=== PATIENT | male | born 1960 | race Caucasian/White ===

== ENCOUNTER 2023-03-03 08:55 | Emergency (ER) | payer OTHER ==
[~2023-03-03] VITALS: Ht 175.3 cm; Wt 131.8 kg
[2023-03-03 09:11] VITALS: BP 185/116
[2023-03-03 09:38] LABS: BASOPHILS % (AUTO) 0.2 % (0-1); EOSINOPHILS % (AUTO) 0.2 % (0-6); HEMATOCRIT 43.5 % (42.0-52.0); HEMOGLOBIN 14.7 g/dl (14.0-17.9); LYMPHOCYTES # (AUTO) 0.4 X10'3 (1.1-4.8); MEAN CORPUSCULAR HEMOGLOBIN 30.5 PG (27.0-31.0); MEAN CORPUSCULAR HGB CONC 33.9 g/dL (33.0-36.5); MEAN CORPUSCULAR VOLUME 90.1 FL (78-98); MEAN PLATELET VOLUME 7.6 FL (7.4-10.4); MONOCYTES # (AUTO) 0.4 X10'3 (0-0.9); MONOCYTES % (AUTO) 4.4 % (2-12); NEUTROPHILS # (AUTO) 8.9 X10'3 (1.8-7.7); NEUTROPHILS % (AUTO) 91.2 % (42-75); PLATELET COUNT 167 X10'3 (140-440); RED BLOOD COUNT 4.83 X10'6 (4.70-6.10); RED CELL DISTRIBUTION WIDTH 14.2 % (11.5-14.5); WHITE BLOOD COUNT 9.8 X10'3 (4.5-11.0)
[2023-03-03 09:51] LABS: ALANINE AMINOTRANSFERASE 52 U/L (12-78); ALBUMIN 3.9 G/DL (3.4-5.0); ALBUMIN/GLOBULIN RATIO 1.1 (1.1-1.5); ALKALINE PHOSPHATASE 176 IU/L (46-116); ANION GAP 12 (8-16); ASPARTATE AMINO TRANSFERASE 33 U/L (10-37); BILIRUBIN,TOTAL 0.7 MG/DL (0.1-1.0); BLOOD UREA NITROGEN 19 MG/DL (7-18); CALCIUM 8.9 MG/DL (8.5-10.1); CHLORIDE 101 MMOL/L (99-107); CREATININE 1.19 MG/DL (0.60-1.10); GLUCOSE 195 MG/DL (70-104); POTASSIUM 4.6 MMOL/L (3.5-5.1); SODIUM 137 MMOL/L (135-145); TOTAL CARBON DIOXIDE 24.3 MMOL/L (24-32); TOTAL PROTEIN 7.6 G/DL (6.4-8.2); eGFR 62 ML/MIN
[2023-03-03 10:01] LABS: MAGNESIUM 2.1 MG/DL (1.5-2.4)
[2023-03-03] MEDS ORDERED: LIDOcaine Viscous 15ml cup MM ONE (14:30)
[2023-03-03] MEDS ORDERED: mag hydrox/Alum hydrox/simeth 30ml oral suspension PO ONE (14:30)
[2023-03-03] MEDS ORDERED: pantoprazole 40mg Tablet.DR PO ONE (14:30)
[2023-03-03] MEDS ORDERED: sucralfate 1 gm tablet PO ONE (14:30)
[2023-03-03] MEDS ORDERED: ondansetron 4mg rapidly disintigrating tab PO ONE (17:05)
[2023-03-03] MEDS ORDERED: HYDROcodone/acetaminophen 10/325mg tab PO ONE (17:05)
[2023-03-03] MEDS ORDERED: HYDR-3973 PO ×2 (17:48)
[2023-03-03] MEDS ORDERED: AMOX-117 PO ×2 (17:48)
[2023-03-03] MEDS ORDERED: ONDA4TAB12 PO ×2 (17:48)
== END 2023-03-03 18:09 | disposition home or self-care (01) ==
LOC: ER 08:56
DX: K80.50 Calculus of bile duct without cholangitis or cholecystitis without obstruction (principal); E78.00 Pure hypercholesterolemia, unspecified; I10 Essential (primary) hypertension; I25.2 Old myocardial infarction; F17.200 Nicotine dependence, unspecified, uncomplicated; Z95.5 Presence of coronary angioplasty implant and graft; Z87.19 Personal history of other diseases of the digestive system; Z79.02 Long term (current) use of antithrombotics/antiplatelets
CPT/HCPCS: 36415; 71045; 74176; 76700; 80053; 83735; 83880; 84484; 85025; 99284; 99285

== ENCOUNTER 2023-03-04 16:54 | Inpatient (IN) | payer OTHER ==
[~2023-03-04] VITALS: Ht 175.3 cm; Wt 131.2 kg
[~2023-03-04 16:54] MED LIST: AMOX-117 PO; HYDR-3973 PO; ONDA4TAB12 PO
[2023-03-04 17:41] LABS: BASOPHILS % (AUTO) 0.1 % (0-1); EOSINOPHILS % (AUTO) 0.3 % (0-6); HEMATOCRIT 46.1 % (42.0-52.0); HEMOGLOBIN 15.5 g/dl (14.0-17.9); LYMPHOCYTES # (AUTO) 0.3 X10'3 (1.1-4.8); LYMPHOCYTES % (AUTO) 3.3 % (21-51); MEAN CORPUSCULAR HEMOGLOBIN 30.1 PG (27.0-31.0); MEAN CORPUSCULAR HGB CONC 33.7 g/dL (33.0-36.5); MEAN CORPUSCULAR VOLUME 89.4 FL (78-98); MONOCYTES # (AUTO) 0.1 X10'3 (0-0.9); MONOCYTES % (AUTO) 0.8 % (2-12); NEUTROPHILS # (AUTO) 7.5 X10'3 (1.8-7.7); NEUTROPHILS % (AUTO) 95.5 % (42-75); PLATELET COUNT 163 X10'3 (140-440); RED BLOOD COUNT 5.15 X10'6 (4.70-6.10); RED CELL DISTRIBUTION WIDTH 14.3 % (11.5-14.5); WHITE BLOOD COUNT 7.9 X10'3 (4.5-11.0)
[2023-03-04 17:56] LABS: ALANINE AMINOTRANSFERASE 60 U/L (12-78); ALBUMIN 3.6 G/DL (3.4-5.0); ALBUMIN/GLOBULIN RATIO 0.8 (1.1-1.5); ALKALINE PHOSPHATASE 202 IU/L (46-116); ANION GAP 14 (8-16); ASPARTATE AMINO TRANSFERASE 41 U/L (10-37); BILIRUBIN,TOTAL 3.3 MG/DL (0.1-1.0); BLOOD UREA NITROGEN 21 MG/DL (7-18); BUN/CREATININE RATIO 10.4 (10.0-20.0); CALCIUM 9.4 MG/DL (8.5-10.1); CHLORIDE 98 MMOL/L (99-107); CREATININE 2.01 MG/DL (0.60-1.10); GLUCOSE 153 MG/DL (70-104); LIPASE 56 U/L (73-393); POTASSIUM 4.1 MMOL/L (3.5-5.1); SODIUM 134 MMOL/L (135-145); TOTAL CARBON DIOXIDE 22.3 MMOL/L (24-32); TOTAL PROTEIN 7.9 G/DL (6.4-8.2); eGFR 34 ML/MIN
[2023-03-04] MEDS ORDERED: piperacillin/tazo 3.375gm/50ml 50 ML IV ONE (19:35)
[2023-03-04] MEDS ORDERED: normal saline 1000ml 1,000 ML IV ONE (19:35)
[2023-03-05] MEDS ORDERED: magnesium 2GM in 50ml NS 50 ML IV PRN (01:50)
[2023-03-05] MEDS ORDERED: magnesium 4gm in 100ml NS 100 ML IV PRN (01:50)
[2023-03-05] MEDS ORDERED: ondansetron/PF 4mg/2ml inj IV PRN (01:50)
[2023-03-05] MEDS ORDERED: morphine 2 MG/ML inj. syringe IV PRN (01:50)
[2023-03-05] MEDS ORDERED: magnesium hydroxide 30ml (MOM) UD suspension PO PRN (01:50)
[2023-03-05] MEDS ORDERED: potassium Cl 40MEQ/1/2NS 520ml 520 ML IV PRN (01:50)
[2023-03-05] MEDS ORDERED: mag hydrox/Alum hydrox/simeth 30ml oral suspension PO PRN (01:50)
[2023-03-05] MEDS: normal saline 1000ml 1,000 ML IV SCH ×3 (02:01→22:04)
--- NOTE | 2023-03-05 02:04 | NUR ---
Patient home CPAP set up in room.
[2023-03-05] MEDS ORDERED: FAMO40TA8 PO (02:17)
[2023-03-05] MEDS ORDERED: THIA100T70 PO (02:17)
[2023-03-05] MEDS ORDERED: NITR0.4T51 SL (02:17)
[2023-03-05] MEDS ORDERED: PROP40TA7 PO (02:17)
[2023-03-05] MEDS ORDERED: PANT40TA54 PO (02:17)
[2023-03-05] MEDS ORDERED: ATOR-2 PO (02:17)
[2023-03-05] MEDS ORDERED: CLOP75TA34 PO (02:17)
[2023-03-05] MEDS ORDERED: CLON0.1T2 PO (02:17)
[2023-03-05] MEDS ORDERED: LISI10TA27 PO (02:17)
[2023-03-05] MEDS ORDERED: SERT-433 PO (02:17)
--- NOTE | 2023-03-05 03:08 | NUR ---
ASSUMED CARE OF PT AFTER RECEIVING REPORT. PT TRANSFERRED TO 6 VIA [facility]. AWAKE NO DISTRESS NOTED. HOME CPAP IN PLACE.
[2023-03-05] MEDS ORDERED: cloNIDine 0.1 mg tablet PO PRN (03:10)
[2023-03-05] MEDS ORDERED: nitroGLYCERIN 0.4mg SUBLingual tab SL PRN (03:10)
--- NOTE | 2023-03-05 05:03 | NUR ---
PT. SLEEPING QUIETLY WITH CPAP IN PLACE WITHOUT DISTRESS OBSERVED.
[2023-03-05] MEDS: lisinopril 10 MG tablet PO SCH (08:00)
[2023-03-05] MEDS: thiamine 100mg tablet PO SCH (08:00)
[2023-03-05] MEDS: famotidine 20mg tablet PO SCH (08:00)
[2023-03-05] MEDS: K and/or MAG REPLACEMENT MC SCH ×2 (08:00→20:00)
[2023-03-05] MEDS: sertraline 50mg tablet PO SCH (08:00)
[2023-03-05] MEDS: pantoprazole 40mg Tablet.DR PO SCH ×2 (08:00→20:08)
[2023-03-05] MEDS: propranolol 10mg tablet PO SCH ×2 (08:00→20:08)
[2023-03-05] MEDS: docusate sod 100mg capsule PO SCH ×2 (08:00→20:08)
[2023-03-05 08:41] LABS: ALANINE AMINOTRANSFERASE 172 U/L (12-78); ALBUMIN 3.1 G/DL (3.4-5.0); ALBUMIN/GLOBULIN RATIO 0.7 (1.1-1.5); ALKALINE PHOSPHATASE 165 IU/L (46-116); ANION GAP 10 (8-16); ASPARTATE AMINO TRANSFERASE 134 U/L (10-37); BLOOD UREA NITROGEN 29 MG/DL (7-18); BUN/CREATININE RATIO 9.5 (10.0-20.0); CALCIUM 8.8 MG/DL (8.5-10.1); CHLORIDE 97 MMOL/L (99-107); CREATININE 3.05 MG/DL (0.60-1.10); GLUCOSE 165 MG/DL (70-104); MAGNESIUM 1.8 MG/DL (1.5-2.4); POTASSIUM 4.2 MMOL/L (3.5-5.1); SODIUM 133 MMOL/L (135-145); TOTAL CARBON DIOXIDE 26.2 MMOL/L (24-32); TOTAL PROTEIN 7.4 G/DL (6.4-8.2); eGFR 21 ML/MIN
[2023-03-05 10:00] VITALS: BP 115/71
[2023-03-05 12:01] VITALS: BP 115/71
--- NOTE | 2023-03-05 12:02 | NUR ---
Patient in room [facility] 356. I have received report from ER. Patient left on Med surge floor without notifying charge nurse or assigned nurse. No IV or fluids running/ Patient oriented to floor, Vitals taken and IV fluids set up. Waiting on pharmacy to bring up dose of IV zosyn that was scheduled to give at AM. Patient was sent to MRI and returned due to size. notified, new orders pending. Patient denies any pain at this time. Will continue NPO orders. All safety measures in place and call light in reach. Will continue to monitor.
[2023-03-05] MEDS: piperacillin/tazo 3.375gm/50ml 50 ML IV SCH ×3 (13:07→23:56)
[2023-03-05 15:00] VITALS: BP 124/66
--- NOTE | 2023-03-05 16:00 | NUR ---
I have reviewed interventions, assessments and documentation by Wanda Baumann LVN.
--- NOTE | 2023-03-05 16:29 | NUR ---
Am dose of Zosyn was not available from Pharmacy until noon when it appeared in unit refrigerator. The late am dose was given at 1300 and next dose will be given at MN, per pharmacist's instruction. Pt & also stated he has a pcn allergy, but that he had no reactions to the Zosyn given in ER. Pharmacy was informed and they stated pt was able to take Zosyn due to no reaction. Pt and were instructed to call RN immediately if he has any s/sx of allergic rx such as itching, rash, sob, etc. Pt agreed. No s/s of allergic reactions appeared during infusion of Zosyn today.
--- NOTE | 2023-03-05 17:22 | NUR ---
Patient waiting on new orders from . MRI was unable to be performed. Hospitalist notified. No new orders to follow. Currently in bed with CPAP from home on. Vitals remain stable. Temp currently 98.9. Discomfort to ABD. Last BM per patient was 9-6. Normally goes once a day. Bowel sounds active. Will continue NPO orders until orders change. All safety measures in place and call light in reach. Will continue to monitor.
--- NOTE | 2023-03-05 18:20 | NUR ---
Patient in room [facility] 356. I have received report from KUSHAL Muñoz and had the opportunity to ask questions and assume patient care. Patient laying on bed in no obvious distress, at bedside. I will continue to monitor.
[2023-03-05 20:00] VITALS: BP 122/75
[2023-03-05] MEDS ORDERED: atorvastatin 20mg tablet PO SCH (21:00)
[2023-03-06] VITALS (22 sets, daily range): BP systolic 109–149; BP diastolic 64–101
[2023-03-06] MEDS: normal saline 1000ml 1,000 ML IV SCH ×4 (03:03→18:24)
[2023-03-06 04:51] LABS: BASOPHILS % (AUTO) 0.2 % (0-1); EOSINOPHILS % (AUTO) 0.1 % (0-6); HEMATOCRIT 38.1 % (42.0-52.0); HEMOGLOBIN 12.9 g/dl (14.0-17.9); LYMPHOCYTES # (AUTO) 0.4 X10'3 (1.1-4.8); LYMPHOCYTES % (AUTO) 3.7 % (21-51); MEAN CORPUSCULAR HEMOGLOBIN 30.5 PG (27.0-31.0); MEAN CORPUSCULAR HGB CONC 33.9 g/dL (33.0-36.5); MEAN CORPUSCULAR VOLUME 89.7 FL (78-98); MEAN PLATELET VOLUME 8.5 FL (7.4-10.4); MONOCYTES # (AUTO) 0.4 X10'3 (0-0.9); MONOCYTES % (AUTO) 4.6 % (2-12); NEUTROPHILS # (AUTO) 8.9 X10'3 (1.8-7.7); NEUTROPHILS % (AUTO) 91.4 % (42-75); PLATELET COUNT 99 X10'3 (140-440); RED BLOOD COUNT 4.24 X10'6 (4.70-6.10); RED CELL DISTRIBUTION WIDTH 14.6 % (11.5-14.5); WHITE BLOOD COUNT 9.7 X10'3 (4.5-11.0)
[2023-03-06 05:04] LABS: ALANINE AMINOTRANSFERASE 109 U/L (12-78); ALBUMIN 2.5 G/DL (3.4-5.0); ALBUMIN/GLOBULIN RATIO 0.6 (1.1-1.5); ALKALINE PHOSPHATASE 151 IU/L (46-116); ANION GAP 10 (8-16); ASPARTATE AMINO TRANSFERASE 46 U/L (10-37); BILIRUBIN,TOTAL 1.1 MG/DL (0.1-1.0); BLOOD UREA NITROGEN 31 MG/DL (7-18); BUN/CREATININE RATIO 14.6 (10.0-20.0); CALCIUM 8.6 MG/DL (8.5-10.1); CHLORIDE 101 MMOL/L (99-107); CREATININE 2.13 MG/DL (0.60-1.10); GLUCOSE 177 MG/DL (70-104); MAGNESIUM 2.3 MG/DL (1.5-2.4); POTASSIUM 3.7 MMOL/L (3.5-5.1); SODIUM 134 MMOL/L (135-145); TOTAL CARBON DIOXIDE 22.9 MMOL/L (24-32); TOTAL PROTEIN 6.9 G/DL (6.4-8.2); eGFR 32 ML/MIN
--- NOTE | 2023-03-06 06:30 | NUR ---
Patient in room [facility] 356. I have received report from ZEYAD Morrell and had the opportunity to ask questions and assume patient care.
[2023-03-06] MEDS: K and/or MAG REPLACEMENT MC SCH ×2 (07:39→20:19)
[2023-03-06] MEDS: docusate sod 100mg capsule PO SCH ×2 (07:43→20:00)
[2023-03-06] MEDS: lisinopril 10 MG tablet PO SCH (08:01)
[2023-03-06] MEDS: thiamine 100mg tablet PO SCH (08:01)
[2023-03-06] MEDS: sertraline 50mg tablet PO SCH (08:02)
[2023-03-06] MEDS: pantoprazole 40mg Tablet.DR PO SCH ×2 (08:02→20:23)
[2023-03-06] MEDS: propranolol 10mg tablet PO SCH ×2 (08:02→20:22)
[2023-03-06] MEDS: famotidine 20mg tablet PO SCH (08:02)
[2023-03-06] MEDS: piperacillin/tazo 3.375gm/50ml 50 ML IV SCH ×2 (08:16→20:51)
[2023-03-06] MEDS ORDERED: pneumococcal 23-VAL P-sac vacc 25 mcg/0.5ml vial IMVAC ONE (10:00)
--- NOTE | 2023-03-06 14:00 | NUR ---
Patient taken to OR at 1400, report called to ballistics teacher John
[2023-03-06] MEDS ORDERED: BUPIVAcaine/PF 2.5 mg/ml (0.25%) 30ml vial ONE (15:14)
[2023-03-06] MEDS ORDERED: fentaNYL/PF 50MCG/1 ML 2ML syringe ONE ×2 (15:19→15:20)
[2023-03-06] MEDS ORDERED: midazolam 1 mg/ML 2ml injection ONE (15:19)
[2023-03-06] MEDS ORDERED: propofol inj 20 ML IV ONE (15:21)
[2023-03-06] MEDS ORDERED: morphine 2 MG/ML inj. syringe IV PRN (15:25)
[2023-03-06] MEDS ORDERED: meperidine/PF 25mg/ml syringe IV PRN ×3 (15:25)
[2023-03-06] MEDS ORDERED: morphine 4 MG/ML inj SYRINge IV PRN (15:25)
[2023-03-06] MEDS ORDERED: ondansetron/PF 4mg/2ml inj IV PRN (15:25)
[2023-03-06] MEDS ORDERED: labetalol 20mg/4ml (5mg/ml) syringe IV PRN (15:25)
[2023-03-06] MEDS ORDERED: proCHLORperazine 10 MG/2 ml inj IV PRN (15:25)
[2023-03-06] MEDS ORDERED: ringers solution, lacted 1,000 ML IV SCH (15:25)
--- NOTE | 2023-03-06 15:37 | NUR ---
PAGER ID: [phone] MESSAGE: James HainesB. Patient has home CPAP at bedside, ok to use? Thank you, Neeru [phone]
[2023-03-06] MEDS ORDERED: famotidine 20mg tablet PO SCH (16:07)
[2023-03-06] MEDS ORDERED: rocuronium 10mg/ml inj IV ONE ×2 (16:12)
[2023-03-06] MEDS ORDERED: BUPIVAcaine/PF 2.5 mg/ml (0.25%) 30ml vial IJ ONE (16:29)
[2023-03-06] MEDS ORDERED: mupirocin 2% ointment 22GM ONE (16:54)
--- NOTE | 2023-03-06 17:16 | NUR ---
Received from OR via [facility], accompanied by Anesthesiologist DR IYER and report given by Anesthesiologist AND STEVEDORING SUPERVISOR. PT DROWSY, DENIES PAIN. ABDOMEN W/4 LAP SITES W/[facility] COVERING CDI, AUGUST W/S/S DRAINAGE TO BULB SX. Addendum: 03/06/23 at 1742 by Meaghan Luz RN Amended: Links added.
[2023-03-06] MEDS: morphine 2 MG/ML inj. syringe IV PRN (18:40)
--- NOTE | 2023-03-06 18:46 | NUR ---
Report called to receiving nurse. Transferred via BED, NO Belongings. PAIN TOLERABLE, RECEIVING RN AT BEDSIDE TO RECEIVE PT. PTS AT BEDSIDE. BLL, CALL LIGHT GIVEN, SIDE RAILS UP. Special Issues communicated to receiving nurse. YES. Addendum: 03/06/23 at 1859 by Meaghan Luz RN Amended: Links added.
--- NOTE | 2023-03-06 18:54 | NUR ---
Demi the pharmacist aware that patient states he had an allergic reaction in the past to Penicillin ( he thinks) which resulted in Hives. Patient has been getting Zosyn here with no reaction.
--- NOTE | 2023-03-06 19:05 | NUR ---
Notified Dr Parmar of patients allergy to Penicillin, Per patient he cant remember which antibiotic and his reaction was hives. Patient has had not symptoms. Per Dr Parmar continue antibiotic but monitor for any reaction. Neeru cedeño EQUIPMENT RECORDS SUPERVISOR aware.
[2023-03-07 06:00] VITALS: BP 136/77
--- NOTE | 2023-03-07 06:00 | NUR ---
Received report from KUSHAL Claros; reprioritized plan of care. Patient checked on, no acute distress at this time. Bed in lowest position/ locked, call chavis within reach. Bed alarm on.
--- NOTE | 2023-03-07 06:19 | NUR ---
Problems reprioritized. Patient report given, questions answered & plan of care reviewed with KUSHAL Zepeda.
--- NOTE | 2023-03-07 06:30 | NUR ---
SENIOR IT AUDITOR CHARTING REVIEWED AND IN AGREEMENT.
[2023-03-07 07:14] LABS: BASOPHILS % (AUTO) 0.2 % (0-1); EOSINOPHILS % (AUTO) 0 % (0-6); HEMATOCRIT 36.9 % (42.0-52.0); HEMOGLOBIN 12.5 g/dl (14.0-17.9); LYMPHOCYTES # (AUTO) 0.5 X10'3 (1.1-4.8); LYMPHOCYTES % (AUTO) 5.6 % (21-51); MEAN CORPUSCULAR HEMOGLOBIN 30.5 PG (27.0-31.0); MEAN CORPUSCULAR HGB CONC 33.8 g/dL (33.0-36.5); MEAN CORPUSCULAR VOLUME 90.1 FL (78-98); MEAN PLATELET VOLUME 9.2 FL (7.4-10.4); MONOCYTES # (AUTO) 0.4 X10'3 (0-0.9); NEUTROPHILS # (AUTO) 8.5 X10'3 (1.8-7.7); NEUTROPHILS % (AUTO) 90.2 % (42-75); PLATELET COUNT 109 X10'3 (140-440); RED BLOOD COUNT 4.09 X10'6 (4.70-6.10); RED CELL DISTRIBUTION WIDTH 14.8 % (11.5-14.5); WHITE BLOOD COUNT 9.4 X10'3 (4.5-11.0)
[2023-03-07] MEDS: morphine 2 MG/ML inj. syringe IV PRN (07:32)
[2023-03-07] MEDS: piperacillin/tazo 3.375gm/50ml 50 ML IV SCH (07:39)
[2023-03-07] MEDS: K and/or MAG REPLACEMENT MC SCH (08:00)
[2023-03-07 08:06] LABS: ALANINE AMINOTRANSFERASE 99 U/L (12-78); ALBUMIN 2.2 G/DL (3.4-5.0); ALBUMIN/GLOBULIN RATIO 0.5 (1.1-1.5); ALKALINE PHOSPHATASE 182 IU/L (46-116); ANION GAP 13 (8-16); ASPARTATE AMINO TRANSFERASE 45 U/L (10-37); BILIRUBIN,TOTAL 0.7 MG/DL (0.1-1.0); BLOOD UREA NITROGEN 28 MG/DL (7-18); BUN/CREATININE RATIO 16.4 (10.0-20.0); CALCIUM 8.5 MG/DL (8.5-10.1); CHLORIDE 103 MMOL/L (99-107); CREATININE 1.71 MG/DL (0.60-1.10); GLUCOSE 223 MG/DL (70-104); MAGNESIUM 2.5 MG/DL (1.5-2.4); POTASSIUM 4.4 MMOL/L (3.5-5.1); SODIUM 135 MMOL/L (135-145); TOTAL CARBON DIOXIDE 19.2 MMOL/L (24-32); TOTAL PROTEIN 6.8 G/DL (6.4-8.2); eGFR 41 ML/MIN
[2023-03-07] MEDS ORDERED: HYDROcodone/acetaminophen 10/325mg tab PO PRN (08:25)
[2023-03-07] MEDS: lisinopril 10 MG tablet PO SCH (08:34)
[2023-03-07] MEDS: propranolol 10mg tablet PO SCH ×2 (08:35→08:38)
[2023-03-07] MEDS: thiamine 100mg tablet PO SCH (08:36)
[2023-03-07] MEDS: sertraline 50mg tablet PO SCH (08:36)
[2023-03-07] MEDS: docusate sod 100mg capsule PO SCH (08:38)
[2023-03-07] MEDS: pantoprazole 40mg Tablet.DR PO SCH (08:43)
[2023-03-07] MEDS: normal saline 1000ml 1,000 ML IV SCH (09:00)
[2023-03-07 10:00] VITALS: BP 120/76
[2023-03-07] MEDS ORDERED: HYDR-3973 PO (10:24)
[2023-03-07] MEDS ORDERED: AMOX-580 PO (10:24)
[2023-03-07] MEDS ORDERED: pneumococcal 23-VAL P-sac vacc 25 mcg/0.5ml vial IMVAC ONE (10:30)
--- NOTE | 2023-03-07 12:32 | NUR ---
Patient discharged per MD order. Wheeled down by aid in wheel chair, with belongings of clothes/ cpap. Patient was provided education on AUGUST drain care, wound care monitoring for s/s of infection. Patient was provided discharge paperwork and signed paperwork per [facility]. IVs discharged, one of the rt hand, and one to the left forearm, cannula intact. Patient is accomanied by . Patient is alert and oritente Addendum: 03/07/23 at 1235 by Katelyn Smith LVN, LVN orientedx4, PL controlled. No acute distress.
== END 2023-03-07 12:33 | disposition home or self-care (01) | DRG 417 ==
LOC: ER 16:54 → ED HOLD 03-05 01:49 → SUR 3N 03-05 07:30
PROVIDERS: ADMIT Internal Medicine; ATTEND Family Medicine
PROC: 0DNW4ZZ Release Peritoneum, Percutaneous Endoscopic Approach (ICD-10-PCS; 2023-03-06)
PROC: 5A09357 Assistance with Respiratory Ventilation, Less than 24 Consecutive Hours, Continuous Positive Airway Pressure (ICD-10-PCS; 2023-03-06)
PROC: 0FT44ZZ Resection of Gallbladder, Percutaneous Endoscopic Approach (ICD-10-PCS; principal; 2023-03-06 15:31)
PROC: 3E0234Z Introduction of Serum, Toxoid and Vaccine into Muscle, Percutaneous Approach (ICD-10-PCS; 2023-03-07)
DX: K80.42 Calculus of bile duct with acute cholecystitis without obstruction (principal); N17.0 Acute kidney failure with tubular necrosis; E87.1 Hypo-osmolality and hyponatremia; E78.00 Pure hypercholesterolemia, unspecified; E86.0 Dehydration; K82.8 Other specified diseases of gallbladder; I10 Essential (primary) hypertension; I25.10 Atherosclerotic heart disease of native coronary artery without angina pectoris; K21.9 Gastro-esophageal reflux disease without esophagitis; K82.A1 Gangrene of gallbladder in cholecystitis; E80.6 Other disorders of bilirubin metabolism; K42.9 Umbilical hernia without obstruction or gangrene; G47.33 Obstructive sleep apnea (adult) (pediatric); K66.0 Peritoneal adhesions (postprocedural) (postinfection); I25.2 Old myocardial infarction; Z79.02 Long term (current) use of antithrombotics/antiplatelets; Z86.73 Personal history of transient ischemic attack (TIA), and cerebral infarction without residual deficits; Z88.0 Allergy status to penicillin; Z95.1 Presence of aortocoronary bypass graft; Z95.5 Presence of coronary angioplasty implant and graft; Z23 Encounter for immunization; Z79.899 Other long term (current) drug therapy
CPT/HCPCS: 99285; Z7506; Z7508; 36415; 76700; 80053; 82948; 83690; 83735; 85025; 85610; 87081; 90732; 93005; A4215; A4618; A6402; A6449; A7000; G0378; J2250; J2270; J2543; J2704; J3010; J3490; J7030; J7120